=== PATIENT | female | born 1995 | race Caucasian/White ===

== ENCOUNTER 2017-04-08 00:39 | Emergency (ER) | payer BC ==
[~2017-04-08] VITALS: Ht 165.1 cm; Wt 60.9 kg
[2017-04-08 00:41] VITALS: TEMP 37.2; Ht 165.1 cm; Wt 60.9 kg
[2017-04-08] MEDS ORDERED: METHYLPREDNISOLONE 125 MG VIAL IV STA (00:55)
[2017-04-08] MEDS ORDERED: ALBUT/IPRATROP 3MG/0.5MG NEB 3 ML VIAL INH ONE (01:00)
[2017-04-08] MEDS ORDERED: SODIUM CHLORIDE 0.9% 1000ML 1,000 ML IV ONE (01:00)
[2017-04-08] MEDS ORDERED: VNTHFA/IN INH (01:03)
[2017-04-08] MEDS ORDERED: DEXT1SYP PO (01:03)
[2017-04-08] MEDS ORDERED: FLUT0.15 NAE (01:03)
[2017-04-08] MEDS ORDERED: AMOX500C3 PO (01:03)
[2017-04-08] MEDS ORDERED: FEXO1TAB49 PO (01:03)
[2017-04-08 01:07] VITALS: O2SAT 98
[2017-04-08 01:12] LABS: BASO % 0.3 %; BASO ABS # 0.03 K/uL (0-0.2); COMPLETE YES; EOS % 3.9 %; HEMATOCRIT 38.4 % (37-47); IG% 0.3 %; LYMPH % 23.6 %; MEAN CELL VOLUME 88.3 fL (80-100); MEAN CORPUSCULAR HGB CONC 35.2 g/dl (32-36); MEAN PLATELET VOLUME 9.7 fL (7.4-10.4); MONO % 10.7 %; NEUT % 61.2 %; PLATELET COUNT 269 K/uL (130-400); RED BLOOD COUNT 4.35 M/uL (4.2-5.4); WHITE BLOOD COUNT 10.16 K/uL (4.8-10.8)
[2017-04-08 01:30] LABS: BUN/CREATININE RATIO 12.2 (10-20); CALCIUM 8.6 mg/dl (8.5-10.1); CREATININE 0.74 mg/dl (0.60-1.20); POTASSIUM 3.9 mmol/L (3.5-5.1)
[2017-04-08 01:33] LABS: ALB/GLOB RATIO 0.7 (0.9-2)
[2017-04-08] MEDS ORDERED: CEFTRIAXONE SOD INJ 1 GM ADDVIAL IV STA (01:38)
[2017-04-08] MEDS ORDERED: AZITHROMYCIN 250 MG TAB PO ONE (01:45)
[2017-04-08] MEDS ORDERED: PRED20TA2 PO (01:48)
[2017-04-08] MEDS ORDERED: AZIT250T PO (01:48)
[2017-04-08] MEDS ORDERED: CEFD300C2 PO (01:48)
[2017-04-08 01:58] VITALS: BP 116/70; PULSE 120; O2SAT 96
--- NOTE | 2017-04-08 06:30 | EMERGENCY ROOM VISIT NOTE ---
History First contact with patient: 00:45 Chief Complaint: RESPIRATORY PROBLEMS Stated Complaint: RATTLY BREATHING,SORE THROAT,SHORTNESS OF BREATH Nursing Triage Summary: c/o a cough for 1 week states hx of asthma has an inhaler at home but no nebulizer. History of Present Illness The patient is a 22 year old female who presents to the Emergency Room with complaints of URI symptoms for the past 2 weeks. The patient states that she has had a worsening cough over the past week. She has a history of asthma and has been using her inhaler today without any improvement of symptoms. She is currently on a dose of amoxicillin after following with an urgent care clinic several days ago. She is not having any improvement of her symptoms with the antibiotics. The patient has had intermittent fever, but has not been checking her temperature on a regular basis. She is otherwise usually healthy and does not take other medicines on a regular basis. She denies chance of . She rates her discomfort an 8/10. Review of Systems More than 10 systems were reviewed and otherwise negative with the exception of history of present illness. Past Medical/Surgical History History of asthma Family History No pertinent family history Social History Smoking Status: Never Smoker Occupation Status: [employer] student Current/Historical Medications Scheduled Amoxicillin (Amoxil), 500 MG PO BID Azithromycin (Zithromax), 250 MG PO DAILY Cefdinir (Omnicef), 300 MG PO Q12H Fexofenadine Hcl (Gladys Allergy), 1 TAB PO DAILY Fluticasone Propionate (Nasal) (Flonase Allergy Relief), 2 SPRAYS PHIL DAILY Prednisone (Prednisone Tab), 2 TAB PO DAILY Scheduled PRN Albuterol Hfa (Ventolin Hfa), 2-4 PUFFS INH DIRECTED PRN for ASTHMA Dextromethorphan-Guaifenesin (Robitussin Peak Cold Dm), 1 DOSE PO DIRECTED PRN for COLD SYMPTOMS, COUGH Physical Exam Vital Signs Date Time Temp Pulse Resp B/P (MAP) Pulse Ox O2 Delivery O2 Flow Rate FiO2 04/08/17 01:58 120 20 116/70 96 Room Air 04/08/17 01:07 98 Room Air 04/08/17 00:41 37.2 119 18 109/70 97 Room Air Physical Exam VITALS: Vitals are noted on the nurse's note and reviewed by myself. Vital signs stable. GENERAL: Well-developed, well-nourished, white female, who is audibly wheezing upon my entrance to the examination room. EARS: External ear normal. External auditory canals clear, tympanic membranes pearly travis without erythema or effusion bilaterally. HEART: Regular rate and rhythm without murmurs gallops or rubs. LUNGS: Diffuse wheezing and rhonchi with right-sided crackles ABDOMEN: Positive normal bowel sounds x 4. Soft, nontender, without masses or organomegaly. No guarding or rebound tenderness. MUSCULOSKELETAL: No muscle atrophy, erythema, or edema noted. Full range of motion without joint tenderness in all extremities. Medical Decision & Procedures Laboratory Results 04/08/17 01:00 Red Blood Count 4.35, Mean Corpuscular Volume 88.3, Mean Corpuscular Hemoglobin 31.0, Mean Corpuscular Hemoglobin Concent 35.2, Mean Platelet Volume 9.7, Neutrophils (%) (Auto) 61.2, Lymphocytes (%) (Auto) 23.6, Monocytes (%) (Auto) 10.7, Eosinophils (%) (Auto) 3.9, Basophils (%) (Auto) 0.3, Neutrophils # (Auto ) 6.21, Lymphocytes # (Auto) 2.40, Monocytes # (Auto) 1.09, Eosinophils # (Auto ) 0.40, Basophils # (Auto) 0.03 04/08/17 01:00 Test 04/08/17 01:00 White Blood Count 10.16 K/uL (4.8-10.8) Red Blood Count 4.35 M/uL (4.2-5.4) Hemoglobin 13.5 g/dL (12.0-16.0) Hematocrit 38.4 % (37-47) Mean Corpuscular Volume 88.3 fL (80-100) Mean Corpuscular Hemoglobin 31.0 pg (25-34) Mean Corpuscular Hemoglobin Concent 35.2 g/dl (32-36) Platelet Count 269 K/uL (130-400) Mean Platelet Volume 9.7 fL (7.4-10.4) Neutrophils (%) (Auto) 61.2 % Lymphocytes (%) (Auto) 23.6 % Monocytes (%) (Auto) 10.7 % Eosinophils (%) (Auto) 3.9 % Basophils (%) (Auto) 0.3 % Neutrophils # (Auto) 6.21 K/uL (1.4-6.5) Lymphocytes # (Auto) 2.40 K/uL (1.2-3.4) Monocytes # (Auto) 1.09 K/uL (0.11-0.59) Eosinophils # (Auto) 0.40 K/uL (0-0.5) Basophils # (Auto) 0.03 K/uL (0-0.2) RDW Standard Deviation 41.4 fL (36.4-46.3) RDW Coefficient of Variation 12.8 % (11.5-14.5) Immature Granulocyte % (Auto) 0.3 % Immature Granulocyte # (Auto) 0.03 K/uL (0.00-0.02) Anion Gap 10.0 mmol/L (3-11) Est Creatinine Clear Calc Drug Dose 109.1 ml/min Estimated GFR () 135.2 Estimated GFR (Non- 116.6 BUN/Creatinine Ratio 12.2 (10-20) Calcium Level 8.6 mg/dl (8.5-10.1) Total Bilirubin 0.4 mg/dl (0.2-1) Aspartate Amino Transf (AST/SGOT) 44 U/L (15-37) Alanine Aminotransferase (ALT/SGPT) 50 U/L (12-78) Alkaline Phosphatase 106 U/L (45-117) Total Protein 7.5 gm/dl (6.4-8.2) Albumin 3.0 gm/dl (3.4-5.0) Globulin 4.5 gm/dl (2.5-4.0) Albumin/Globulin Ratio 0.7 (0.9-2) Medications Administered Medications (Trade) Dose Ordered Sig/Yue Route Start Time Stop Time Status Last Admin Dose Admin Sodium Chloride 1,000 ml @ 999 mls/hr Q1H1M ONCE IV 04/08/17 01:00 04/08/17 02:00 DC 04/08/17 01:05 999 MLS/HR Methylprednisolone Sodium Succinate (Solu-Medrol IV) 125 mg NOW STAT IV 04/08/17 00:55 04/08/17 00:57 DC 04/08/17 01:05 125 MG Albuterol/ Ipratropium (Duoneb) 3 ml NOW ONCE INH 04/08/17 01:00 04/08/17 01:01 DC 04/08/17 01:05 3 ML Ceftriaxone Sodium (Rocephin Inj) 1 gm NOW STAT IV 04/08/17 01:38 04/08/17 01:39 DC 04/08/17 01:50 1 GM Azithromycin (Zithromax Tab) 500 mg NOW ONCE PO 04/08/17 01:45 04/08/17 01:46 DC 04/08/17 01:50 500 MG ED Course Physical exam and history were performed. Nursing notes, EMR, and Medication List were personally reviewed. Patient appears to have significant wheezing and rhonchi on examination. Clinically she has pneumonia with crackles in the right side lower lung field. IV access was established and labs were obtained. The patient was given IV Solu -Medrol as well as a DuoNeb. X-ray was performed. The patient's blood work is as above and was reviewed. She is not a significant elevated blood cell count, gross anemia, bandemia, or significant intellectual imbalance. Xray was reviewed by myself and my attending as showing possible bilateral pneumonia. Official radiology read is pending. Overall the patient's blood work is reassuring, and she felt significant better after Solu-Medrol and DuoNeb. She has been on several days of amoxicillin, and because of this I will provide her a dose of IV Rocephin and oral Zithromax here in the department. She will be discharged home with oral Zithromax, Omnicef, and prednisone. The patient should follow with [facility] in the next few days for recheck. She was otherwise invited back to ER with any new, worsening, or concerning symptoms. The chart was completed utilizing [employer] Speech Voice Recognition Software. Grammatical errors, random word insertions, pronoun errors, and incomplete sentences are an occasional consequence of this system due to software limitations, ambient noise, and hardware issues. Any formal questions or concerns about the content, text, or information contained within the body of this dictation should be directly addressed to the provider for clarification. . Medical Decision Differential diagnosis: Etiologies such as viral syndrome, otitis, pharyngitis, pneumonia, influenza, meningitis, urinary tract infection, sepsis, bacteremia, as well as others were entertained. Impression Primary Impression: Pneumonia Departure Information Dispostion Home / Self-Care Condition GOOD Prescriptions Prednisone (Prednisone Tab) 20 Mg Tab 2 TAB PO DAILY for 4 Days, #8 TAB Prov: Pao, Filemon A., PA-C 04/08/17 Azithromycin (Zithromax) 250 Mg Tab 250 MG PO DAILY for 4 Days, #4 TAB Prov: Filemon Cedeno PA-C 04/08/17 Cefdinir (OMNICEF) 300 Mg Cap 300 MG PO Q12H for 7 Days, #14 CAP Prov: Filemon Cedeno PA-C 04/08/17 Forms HOME CARE DOCUMENTATION FORM, School Instructions, Additional Instructions: Patient was seen and evaluated today in the emergency department fo medical care. Return to class on 04/10/2017. Please excuse. IMPORTANT VISIT INFORMATION Patient Instructions [facility] Additional Instructions You were seen and evaluated today on an emergency basis only. This is not a substitute for, or an effort to provide, complete comprehensive medical care. It is not possible to recognize and treat all injuries or illnesses in a single emergency department visit. For this reason it is recommended that you followup with [facility] this week for recheck of her condition. We do recommend that you have a repeat x-ray in about a week to ensure resolution. Take Zithromax 250 mg daily for the next 4 days. Take prednisone daily for the next 4 days. Take Omnicef 300 mg twice daily for the next week. Discontinue amoxicillin. Continue your inhalers at home as previously prescribed. You are welcome to return to the emergency department anytime with new, worsening, or concerning symptoms. School Instructions Additional School Instructions: Patient was seen and evaluated today in the emergency department for medical care. Return to class on 04/10/2017. Please excuse.
--- NOTE | 2017-04-08 06:46 | DIAGNOSTIC IMAGING REPORT ---
CHEST 2 VIEWS ROUTINE CLINICAL HISTORY: Cough. Fever. COMPARISON STUDY: No previous studies for comparison. FINDINGS: Lung volumes are normal. No pneumothorax or pleural effusion is present. Multifocal bilateral airspace opacities are noted suggestive of multifocal pneumonia. No lobar consolidation is present. No cavitation is identified. There is mild left hilar prominence. IMPRESSION: 1. Multifocal bilateral airspace opacities suggestive of pneumonia. Radiographic follow up to ensure resolution is recommended. 2. Mild left hilar prominence which may be due to reactive lymphadenopathy. Electronically signed by: Gulshan Paiz M.D. 04/08/2017 6:45 AM Dictated Date/Time: 04/08/2017 6:43 AM
== END 2017-04-08 02:32 | disposition home or self-care (01) ==
LOC: C.EDB 00:40
DX: J18.9 Pneumonia, unspecified organism (principal); J45.909 Unspecified asthma, uncomplicated